=== PATIENT | female | born 1940 | race Caucasian/White ===

== ENCOUNTER → 2019-03-07 | Outpatient (CLI) | payer MEDICARE, OTHER ==
[~2019-03-07] MED LIST: ALPR0.254 PO; ALPR0.2550; ASPI-892 PO; ATOR20TA66 PO; ATRV10T; AZIT-21 PO; CALC-80; CATHETER FLUSH 10 ML SYR IV PRN; CLCX200C PO; CLN.1T PO; FLT05NA16; HOLD METFORMIN - RECEIVED CONTRAST 20 ML VIAL IV SCH; HYDR-34 PO; IOHEXOL 350 MG/ML 100 ML (OMNIPAQUE 350) VIAL IV ONE; LISI40TA PO; MTP25TSR; MTP50T PO; MULT-608; NS 100 ML (IVPB) BAG IV ONE; PNT400TCR PO; RAMI10TA
--- NOTE | 2019-03-07 21:36 | Diagnostic Imaging Report ---
PROCEDURE: CT abdomen and pelvis with contrast. TECHNIQUE: Multiple contiguous axial images were obtained through the abdomen and pelvis after administration of intravenous contrast. Auto Exposure Controls were utilized during the CT exam to meet ALARA standards for radiation dose reduction. DATE: March 07, 2019. COMPARISON: None. INDICATION: 78-year-old female, right lower quadrant abdominal pain. History of melanoma. FINDINGS: There is a calcified left lower lobe pulmonary nodule most likely relating to a benign calcified granuloma. The additional visualized portions of the lungs are grossly clear. The heart is not enlarged. There is no pericardial effusion. There are atherosclerotic calcifications. 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 There is ectasia of the infrarenal abdominal aorta. The liver is unremarkable in size and contour. There is no identified liver lesion. The main, right, and left portal veins are patent. The gallbladder is contracted. There is no intrahepatic or extrahepatic bile duct dilation. There is question of pancreatic divisum. The main pancreatic duct is not abnormally dilated. Evaluation of the pancreatic parenchyma is unremarkable. There is a high attenuation lesion in the spleen on axial image 20, measuring 7 mm in size. There is also an additional less likely enhancing lesion in the spleen on axial image 22 also measuring subcentimeter in size. The spleen is not enlarged. There is nonspecific thickening of the left adrenal gland. There is a low-attenuation right renal lesion on axial image 14 which measures 1.9 cm in size with internal attenuation compatible with a benign cyst. There is a benign left renal cyst on axial image 24 measuring 4.5 cm in size. The urinary collecting systems are not distended. There is no identified renal or ureteral stone. There is no identified prominent urinary bladder wall thickening. There is very limited evaluation of the sigmoid colon, particularly in its mid to distal aspects as well as the rectum. There is suspicion of abnormal bowel wall thickening in this distribution. There is a large volume colonic stool. The transverse colon and right colon are dilated in particular. The right colon measures up to 6.9 cm in diameter. There is diffuse abnormal small bowel fold appearance, enhancement and wall thickening. There is no identified pneumatosis, portal venous gas or free intraperitoneal air. The small bowel is not grossly distended. There is no identified well-demarcated drainable fluid collection. There are prominent collateral vessels within the anterior subcutaneous tissues at the level of the pelvis and lower abdomen. There is grade 2 anterolisthesis of L4 on L5 relating to facet degenerative changes. There are L4 and L5 vertebral body hemangiomas as well as the vertebral body hemangioma of T11. The bones appear demineralized. IMPRESSION: CT abdomen/pelvis: 1. Diffuse abnormal small bowel fold appearance, wall thickening and abnormal enhancement. Differential diagnostic considerations would include an infectious or inflammatory enteritis, metastatic disease, lymphoma, findings relating to lymphedema or potentially a depositional type process. 2. Limited evaluation of the mid to distal sigmoid colon and rectum with suspected abnormal but nonspecific bowel wall thickening at this location. 3. Large amount of stool within the colon with dilated transverse colon and right colon in particular measuring up to approximately 7 cm in diameter. 4. Abnormally dilated collateral vessels within the anterior subcutaneous tissues at the level of the pelvis and lower anterior abdomen. 5. 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 Extensive atherosclerotic disease. Dictated by: Dictated on workstation # [id number]
== END ==
LOC: RAD FS 13:43
PROVIDERS: ATTEND Pediatrics
DX: K63.89 Other specified diseases of intestine (principal); K59.39 Other megacolon; I77.89 Other specified disorders of arteries and arterioles; I70.90 Unspecified atherosclerosis; Z85.820 Personal history of malignant melanoma of skin
CPT/HCPCS: 74177

== ENCOUNTER 2019-03-31 05:38 | Outpatient (CLI) | payer MEDICARE, OTHER ==
[~2019-03-31] VITALS: Ht 154.9 cm; Wt 40.8 kg
[~2019-03-31 05:38] MED LIST changes: -CATHETER FLUSH 10 ML SYR IV PRN; -HOLD METFORMIN - RECEIVED CONTRAST 20 ML VIAL IV SCH; -IOHEXOL 350 MG/ML 100 ML (OMNIPAQUE 350) VIAL IV ONE; -NS 100 ML (IVPB) BAG IV ONE
[2019-03-31] MEDS ORDERED: LISI40TA PO (15:17)
[2019-03-31] MEDS ORDERED: ATOR10TA66 PO (15:17)
[2019-03-31] MEDS ORDERED: ASPI-999 PO (15:17)
[2019-03-31] MEDS ORDERED: CLON0.1T PO (15:17)
[2019-03-31] MEDS ORDERED: HYDR-700 PO (15:17)
[2019-03-31] MEDS ORDERED: PENT400T9 PO (15:17)
[2019-03-31] MEDS ORDERED: HYDR50TA76 PO (15:17)
[2019-03-31] MEDS ORDERED: METO50TA15 PO (15:17)
== END 2019-03-31 15:20 | disposition home or self-care (01) ==
LOC: PREOP 05:38
PROVIDERS: ATTEND Pediatrics
DX: Z01.818 Encounter for other preprocedural examination (principal)

== ENCOUNTER 2019-04-03 07:28 | Day surgery (SDC) | payer MEDICARE, OTHER ==
[2019-04-03] VITALS (9 sets, daily range): BP systolic 99–151; BP diastolic 63–78
[~2019-04-03] VITALS: Ht 154.9 cm; Wt 40.8 kg
[~2019-04-03 07:28] MED LIST changes: +ASPI-999 PO; +ATOR10TA66 PO; +CLON0.1T PO; +HYDR-700 PO; +HYDR50TA76 PO; +METO50TA15 PO; +PENT400T9 PO
[2019-04-03] MEDS ORDERED: NS IV 500 ML 500 ML IV PRN (07:44)
[2019-04-03] MEDS ORDERED: NS IV 500 ML 500 ML ONE (07:44)
--- OUTSIDE RECORDS SUMMARY | 2019-04-03 07:44 | XMS REPORT | Continuity of Care Document ---
Author Organization Unknown Address Unknown Allergies Active Description Code Type Severity Reaction Onset Reported/Identified Relationship to Patient Clinical Status Yes Iodinated Contrast- Oral and IV Dye [id number] Drug Allergy Mild N/A 09/13/2009 Yes Sulfa (Sulfonamide Antibiotics) [id number] Drug Allergy Mild SKIN IRRITATION 09/13/2009 Medications There is no data. Problems Date Dx Coded Attending Type Code Diagnosis Diagnosed By 01/08/2014 KEREN BEAULIEU MD Ot 172.7 MALIG MELANOMA LEG 03/08/2014 THEA FRENCH MD Ot 172.7 MALIG MELANOMA LEG 03/08/2014 THEA FRENCH MD Ot 305.1 TOBACCO USE DISORDER 03/08/2014 THEA FRENCH MD Ot 401.9 HYPERTENSION NOS 03/08/2014 THEA FRENCH MD Ot 716.90 ARTHROPATHY NOS-UNSPEC 03/08/2014 THEA FRENCH MD Ot 780.4 DIZZINESS AND GIDDINESS 03/08/2014 THEA FRENCH MD Ot 784.2 SWELLING IN HEAD NECK 03/08/2014 THEA FRNECH MD Ot V12.51 HX-VENOUS THROMBOSIS EMBOLISM 03/08/2014 THEA FRENCH MD Ot V58.69 OTH MED,LT,CURRENT USE 03/07/2019 KEREN BEAULIEU MD Ot 172.7 MALIG MELANOMA LEG 03/07/2019 KEREN BEAULIEU MD Ot V72.63 PRE-PROCEDURAL LABORATORY EXAMINATION 03/07/2019 KEREN BEAULIEU MD Ot V72.81 [id number] CARDIOVASCULAR 03/07/2019 KEREN BEAULIEU MD Ot V72.84 EXAM PRE-OPERATIVE NOS 03/07/2019 Ot 172.7 MALIG MELANOMA LEG 03/07/2019 Ot 305.1 TOBACCO USE DISORDER 03/07/2019 Ot 401.9 HYPERTENSION NOS 03/07/2019 Ot 716.90 ARTHROPATHY NOS- UNSPEC 03/07/2019 Ot 780.4 DIZZINESS AND GIDDINESS 03/07/2019 Ot 784.2 SWELLING IN HEAD NECK 03/07/2019 Ot V12.51 HX-VENOUS THROMBOSIS EMBOLISM 03/07/2019 Ot V58.69 OTH MED,LT,CURRENT USE 03/10/2019 SHIRA LÓPEZ MD Ot I70.90 UNSPECIFIED ATHEROSCLEROSIS 03/10/2019 SHIRA LÓPEZ MD Ot I77.89 OTHER SPECIFIED DISORDERS OF ARTERIES AN 03/10/2019 SHIRA LÓPEZ MD Ot K59.39 OTHER MEGACOLON 03/10/2019 SHIRA LÓPEZ MD Ot K63.89 OTHER SPECIFIED DISEASES OF INTESTINE 03/10/2019 SHIRA LÓPEZ MD Ot Z85.820 PERSONAL HISTORY OF MALIGNANT MELANOMA O 03/11/2019 SHIRA LÓPEZ MD Ot I70.90 UNSPECIFIED ATHEROSCLEROSIS 03/11/2019 SHIRA LÓPEZ MD Ot I77.89 OTHER SPECIFIED DISORDERS OF ARTERIES AN 03/11/2019 SHIRA LÓPEZ MD Ot K59.39 OTHER MEGACOLON 03/11/2019 SHIRA LÓPEZ MD Ot K63.89 OTHER SPECIFIED DISEASES OF INTESTINE 03/11/2019 SHIRA LÓPEZ MD Ot Z85.820 PERSONAL HISTORY OF MALIGNANT MELANOMA O 03/11/2019 SHIRA LÓPEZ MD Ot I70.90 UNSPECIFIED ATHEROSCLEROSIS 03/11/2019 SHIRA LÓPEZ MD Ot I77.89 OTHER SPECIFIED DISORDERS OF ARTERIES AN 03/11/2019 SHIRA LÓPEZ MD Ot K59.39 OTHER MEGACOLON 03/11/2019 SHIRA LÓPEZ MD Ot K63.89 OTHER SPECIFIED DISEASES OF INTESTINE 03/11/2019 SHIRA LÓPEZ MD Ot Z85.820 PERSONAL HISTORY OF MALIGNANT MELANOMA O 03/11/2019 SHIRA LÓPEZ MD Ot I70.90 UNSPECIFIED ATHEROSCLEROSIS 03/11/2019 SHIRA LÓPZE MD Ot I77.89 OTHER SPECIFIED DISORDERS OF ARTERIES AN 03/11/2019 SHIRA LÓPEZ MD Ot K59.39 OTHER MEGACOLON 03/11/2019 SHIRA LÓPEZ MD Ot K63.89 OTHER SPECIFIED DISEASES OF INTESTINE 03/11/2019 SHIRA LÓPEZ MD Ot Z85.820 PERSONAL HISTORY OF MALIGNANT MELANOMA O 03/31/2019 SHIRA LÓPEZ MD Ot Z01.818 ENCOUNTER FOR OTHER PREPROCEDURAL EXAMIN 04/01/2019 SHIRA LÓPEZ MD Ot I70.90 UNSPECIFIED ATHEROSCLEROSIS 04/01/2019 SHIRA LÓPEZ MD Ot I77.89 OTHER SPECIFIED DISORDERS OF ARTERIES AN 04/01/2019 SHIRA LÓPEZ MD Ot K59.39 OTHER MEGACOLON 04/01/2019 SHIRA LÓPEZ MD Ot K63.89 OTHER SPECIFIED DISEASES OF INTESTINE 04/01/2019 SHIRA LÓPEZ MD Ot Z85.820 PERSONAL HISTORY OF MALIGNANT MELANOMA O Procedures There is no data. Results There is no data. Encounters ACCT No. Visit Date/Time Discharge Status Pt. Type Provider Facility Loc./Unit Complaint [id number] 03/31/2019 05:38:00 03/31/2019 15:20:00 DIS Outpatient SHIRA LÓPEZ MD [facility] PREOP COLONOSCOPY [id number] 03/07/2019 13:43:00 03/07/2019 23:59:59 CLS Outpatient SHIRA LÓPEZ MD [facility] RAD FS R10.31 ABD PAIN RT LOWER QUAD [id number] 01/13/2014 10:43:00 03/08/2014 00:01:00 DIS Outpatient THEA FRENCH MD [facility] ONC [id number] 01/08/2014 07:37:00 01/08/2014 14:30:00 DIS Outpatient KEREN BEAULIEU MD [facility] SDC MELANOMA LT UPPER LEG [id number] 01/01/2014 08:26:00 01/01/2014 23:59:59 CLS Outpatient KEREN BEAULIEU MD [facility] PREOP MELANOMA LEFT UPPER LEG [id number] 04/03/2019 08:30:00 PEN Preadmit SHIRA LÓPEZ MD [facility] ENDO COLON WALL THICKENING [id number] 03/07/2019 13:44:00 Document Registration [id number] 03/09/2014 00:00:00 Document Registration
[2019-04-03] MEDS ORDERED: fentaNYL INJECTION 100 MCG/2 ML AMP IVP ONE (07:45)
[2019-04-03] MEDS ORDERED: MIDAZOLAM 2 MG/2 ML (VERSED) VIAL IVP ONE (07:45)
--- NOTE | 2019-04-03 07:55 | Progress Note-Pre Operative ---
Pre-Operative Progress Note H&P Reviewed The H&P was reviewed, patient examined and no changes noted. Date Seen by Provider: Apr 03, 2019 Time Seen by Provider: 07:55 Date H&P Reviewed: Apr 03, 2019 Time H&P Reviewed: 07:55 Pre-Operative Diagnosis: colonic wall thickening by CT SHIRA LÓPEZ MD Apr 03, 2019 07:55
--- NOTE | 2019-04-03 09:11 | Endoscopy Procedure Report ---
Colonoscopy Procedure Performed: sigmoidoscopy Pre-Operative Diagnosis: thickend sigmoid Post-Operative Diagnosis: same Wholesale Representative: None. Indications for Procedure: as above Procedure Details: Informed consent was obtained, the risks, benefits and alternatives to the procedure were explained to the patient. The Chantal Richey, a 78 yr old female, was brought to to surgery area, sedated with 2 mg of Versed and 50 ug of fentanyl. She was placed in the left lateral decubitus position. Under direct visualization the scope was passed easily to the cecum. Cecum is identified by landmarks. Scope was carefully withdrawn. Findings: Ascending Colon: not seen Transverse Colon: not seen Descending/Sigmoid: scope advnced only 30-40 cm and unable to pass thickened sigmoid colon Rectum: none Estimated Blood Loss: 0mL Specimens: none Complications: None; patient tolerated the procedure well. Final Diagnosis: sigmoidoscopy only as noted SHIRA LÓPEZ MD Apr 03, 2019 09:11
== END 2019-04-03 08:08 | disposition home or self-care (01) ==
LOC: ENDO 07:28
PROVIDERS: ATTEND Pediatrics
DX: K63.9 Disease of intestine, unspecified (principal)

== ENCOUNTER → 2019-04-16 | Outpatient (CLI) | payer MEDICARE, OTHER ==
--- NOTE | 2019-04-16 13:51 | Diagnostic Imaging Report ---
EXAMINATION: Abdomen at 11:01 a.m. INDICATION: Constipation. FINDINGS: The previous CT abdomen/pelvis exam of 03/07/2019 noted a considerable amount of fecal material throughout the ascending and transverse colon. The patient presented today for an air contrast colon exam. Unfortunately, there is still a considerable amount of residual fecal material still present in the ascending and transverse colon. The colon exam can be performed following an adequate bowel preparation. The possibility of a therapeutic Gastrografin enema should also be considered. There is no other abnormality identified. IMPRESSION: 1. The air contrast colon exam could not be performed due to the presence of a considerable amount of residual fecal material within the colon. Recommendations as above. 2. These results were discussed with Dr. Becerra. Dictated by: Dictated on workstation # [id number]
== END ==
LOC: RAD 10:36
PROVIDERS: ATTEND Pediatrics
DX: K59.00 Constipation, unspecified (principal); K63.89 Other specified diseases of intestine
CPT/HCPCS: 74280

== ENCOUNTER → 2019-04-30 | Outpatient (CLI) | payer MEDICARE, OTHER ==
[~2019-04-30] MED LIST changes: +DIATRIZOATE MEGLUM/SODIUM 37% 120 ML (GASTROGRAFIN) RC ONE; -PENT400T9 PO
--- NOTE | 2019-04-30 16:24 | Diagnostic Imaging Report ---
INDICATION: Constipation as well as incomplete colonoscopy. TECHNIQUE: Gastrografin contrast was infused into the colon in a retrograde fashion through a rectal tip. Spot films and overhead radiographs of the abdomen were then performed. A total of 3 minutes 7 seconds of fluoroscopy was utilized. FINDINGS: The preliminary radiograph of the abdomen is unremarkable. Post contrast images demonstrate diverticulosis of the sigmoid colon. There is significant elongation and redundancy of the colon, limiting the study. There appears to be complete or near complete filling of the colon with contrast material. No discrete colonic mass is identified. No definite polypoid lesion is seen. IMPRESSION: Colonic diverticulosis. There is significant redundancy to the colon limiting the study but no discrete colonic mass is detected. Dictated by: Dictated on workstation # [id number]
== END ==
LOC: RAD 09:39
PROVIDERS: ATTEND Pediatrics
DX: K57.30 Diverticulosis of large intestine without perforation or abscess without bleeding (principal); K59.00 Constipation, unspecified
CPT/HCPCS: 74270